=== PATIENT | male | born 1940 | race Hispanic/Latino ===

== ENCOUNTER 2018-02-04 10:15 | Day surgery (SDC) | payer MEDICARE ==
--- NOTE | 2018-02-03 12:10 | Anesthesia Consultation ---
Anesthesia Consult and Med Hx Date of service: 02/03/18 - Airway Anesthetic Teeth Evaluation: Poor ROM Head & Neck: Inadequate Mental/Hyoid Distance: Inadequate Mallampati Class: Class III Intubation Access Assessment: Possibly Difficult - Pulmonary Exam CTA: Yes - Cardiac Exam Cardiac Exam: RRR - Pre-Operative Health Status ASA Pre-Surgery Classification: ASA4 Proposed Anesthetic Plan: General (probable difficult intubation) - Pulmonary Hx Smoking: No Hx Sleep Apnea: No (FOREIGN PRE SCREEN HIGH RISK) - Cardiovascular System Hx Hypertension: No Hx Coronary Artery Disease: Yes Hx Heart Attack/AMI: Yes (X 2 ( 2003,2004) ) Hx Percutaneous Transluminal Coronary Angioplasty (PTCA): Yes (2003) Hx Pacemaker: Yes Hx Internal Defibrillator: Yes - Central Nervous System Hx Back Pain: Yes (NECK AND BACK PAIN WITH JOSEFA LEG NUMBNESS) - Endocrine Hx Renal Disease: Yes (last dialysis friday 02/02) Hx End Stage Renal Disease: Yes (SINCE 2005) - Other Systems Hx Cancer: No
[~2018-02-04 10:15] MED LIST: ANCEF/STERILE WATER 2 GM/20 ML IV NR; NACL 0.9% 1000 ML 1,000 ML IV SCH
[2018-02-04 11:39] LABS: Basophils # (Auto) 0.1 K/mm3 (0.0-0.1); Basophils % (Auto) 1.2 % (0.0-1.8); Eosinophils # (Auto) 0.4 K/mm3 (0.0-0.4); Eosinophils % (Auto) 6.6 % (0.0-4.3); Hematocrit 35.8 % (35.5-45.6); Hemoglobin 12.2 gm/dl (11.8-15.2); Lymphocytes # (Auto) 0.9 K/mm3 (1.2-5.4); Lymphocytes % (Auto) 16.9 % (13.4-35.0); Mean Corpuscular HGB Conc 34 % (32-34); Mean Corpuscular Hemoglobin 37 pg (28-32); Mean Corpuscular Volume 109 fl (84-94); Monocytes # (Auto) 0.9 K/mm3 (0.0-0.8); Monocytes % (Auto) 15.4 % (0.0-7.3); Platelet Count 116 K/mm3 (140-440); Red Blood Count 3.28 M/mm3 (3.65-5.03); Red Cell Distribution Width 15.2 % (13.2-15.2)
[2018-02-04] MEDS ORDERED: DILAUDID ONE (11:45)
[2018-02-04] MEDS ORDERED: ZEMURON IV ONE (11:46)
[2018-02-04] MEDS ORDERED: DIPRIVAN 10 MG/ML IV ONE (11:46)
[2018-02-04] MEDS ORDERED: XYLOCAINE MPF 2% ONE (11:46)
[2018-02-04 11:52] LABS: INR 1.1 (0.87-1.13)
[2018-02-04 11:53] LABS: Partial Thromboplastin Time 27.9 Sec. (24.2-36.6)
[2018-02-04 11:57] LABS: Albumin 4.3 g/dL (3.9-5)
[2018-02-04] MEDS ORDERED: MARCAINE 0.5% INFILTRATI ONE ×2 (12:12→13:46)
[2018-02-04] MEDS ORDERED: TRIPLE ANTIBIOTIC TP ONE (12:12)
[2018-02-04] MEDS ORDERED: XYLOCAINE 1%/ EPI 1:100,000 INFILTRATI ONE ×2 (12:12→13:45)
[2018-02-04] MEDS ORDERED: QUELICIN ONE (12:26)
[2018-02-04] MEDS ORDERED: BACITRACIN ONE ×2 (12:28→15:08)
[2018-02-04] MEDS ORDERED: NACL P/F VIAL (10 ML) 10 ML ONE ×2 (12:29→15:08)
[2018-02-04] MEDS ORDERED: NEO SYNEPHRINE/NS Syringe(OR USE) IV ONE (13:05)
[2018-02-04] MEDS ORDERED: NEO SYNEPHRINE ONE ×2 (13:05→15:21)
[2018-02-04] MEDS ORDERED: NACL 0.9% IR ONE ×2 (13:46)
[2018-02-04] MEDS ORDERED: BACITRACIN IR ONE ×2 (13:46)
[2018-02-04] MEDS ORDERED: SUBLIMAZE IV PRN (14:09)
--- NOTE | 2018-02-04 14:09 | Anesthesia Day of Surgery ---
Anesthesia Day of Surgery - Day of Surgery Patient Examined: Yes Patient H&P Reviewed: Yes Patient is NPO: Yes Cardiac Clearance: Yes
[2018-02-04] MEDS ORDERED: NACL 0.9% 200 ML ONE (15:20)
[2018-02-04 20:30] VITALS: BP 109/50
--- NOTE | 2018-02-07 07:36 | Fluoroscopy Report ---
FLUOROSCOPY C-ARM/FLUOROSCOPY TRACKING History: Lumbar stenosis. Findings: Fluoroscopy was provided by radiology during a spinal procedure. 12 fluoroscopic images were captured by the surgeon. The images demonstrate contrast in the thecal sac with apparent high-grade stenosis at the L4-5 level. Please correlate with the procedure report as needed. Impression: Lumbar stenosis.
== END 2018-02-04 10:16 | disposition home or self-care (01) ==
LOC: OR 10:15
PROVIDERS: ATTEND Radiology Diagnostic Radiology
DX: M48.061 Spinal stenosis, lumbar region without neurogenic claudication (principal); M51.16 Intervertebral disc disorders with radiculopathy, lumbar region; M19.012 Primary osteoarthritis, left shoulder; M51.36 Other intervertebral disc degeneration, lumbar region; I25.10 Atherosclerotic heart disease of native coronary artery without angina pectoris; N18.6 End stage renal disease; I50.9 Heart failure, unspecified; I25.2 Old myocardial infarction; I48.91 Unspecified atrial fibrillation; F32.9 Major depressive disorder, single episode, unspecified; Z79.01 Long term (current) use of anticoagulants; Z79.899 Other long term (current) drug therapy; Z88.6 Allergy status to analgesic agent; Z88.5 Allergy status to narcotic agent; Z88.8 Allergy status to other drugs, medicaments and biological substances; Z99.2 Dependence on renal dialysis; Z95.5 Presence of coronary angioplasty implant and graft; Z90.49 Acquired absence of other specified parts of digestive tract; Z95.810 Presence of automatic (implantable) cardiac defibrillator; Z98.890 Other specified postprocedural states; Z98.49 Cataract extraction status, unspecified eye
CPT/HCPCS: 36415; 63047; 72100; 80053; 85025; 85610; 85730; 86850; 86900; 86901; A4217; J0330; J0690; J1170; J2370; J2704; J7030; Q9967; A6250

== ENCOUNTER 2018-02-04 19:58 | Emergency (ER) | payer MEDICARE ==
[2018-02-04 20:11] VITALS: BP 93/42
--- NOTE | 2018-02-04 21:17 | Emergency Department Report ---
HPI - General Time Seen by Provider: 02/04/18 20:05 - HPI HPI: 77-year-old male presents to the emergency department from the parking lot after the patient was too weak postop to get into the car and go home. The patient had endoscopic decompression of lumbar stenosis done earlier today in the outpatient setting by Dr. Magallanes. The patient usually uses a accommodation of a wheelchair and a electric chair to get around but sometimes will walk a little bit using a cane. The patient felt that he was doing well postop and that the anesthesia had worn off. However when he was trying to get from the wheelchair into the car he felt like he was weak and he slowly slid down towards the ground. Family was surrounding him and was able to ease him to the ground. He did not hit his surgical site or his head. There was no loss of consciousness. Patient has a history of chronic atrial fibrillation, coronary artery disease, previous CT 2, AICD and pacemaker in place and is end- stage renal disease on hemodialysis. ED Past Medical Hx - Past Medical History Hx Hypertension: No Hx Heart Attack/AMI: Yes (X 2 ( 2003,2004) ) Hx Congestive Heart Failure: Yes Hx Renal Disease: Yes (last dialysis friday 02/02) Hx HIV: No - Surgical History Hx Coronary Stent: Yes (2003) Hx Pacemaker: Yes Hx Internal Defibrillator: Yes Hx Cholecystectomy: Yes - Social History Smoking Status: Never Smoker - Medications Home Medications: Home Medications Medication Instructions Recorded Confirmed Last Taken Type Cinacalcet [Sensipar] 30 mg PO DAILY 01/31/18 01/31/18 02/03/18 History Ferric Citrate (Nf) [Auryxia (Nf)] 210 mg PO TID 01/31/18 01/31/18 02/03/18 History Gabapentin [Neurontin] 400 mg PO BID 01/31/18 02/04/18 02/04/18 09:00 History Midodrine HCl 20 mg PO DAILY 01/31/18 02/04/18 01/14/18 07:05 History Oxycodone HCl/Acetaminophen 1 each PO Q6HR PRN 01/31/18 02/04/18 02/04/18 10:00 History [Percocet 10/325 mg] Polyethylene Glycol 3350 [Miralax 17 gm PO QDAY 01/31/18 01/31/18 02/03/18 History 3350] Warfarin [Coumadin] 7.5 mg PO QDAY 01/31/18 02/04/18 01/29/18 History Cetirizine HCl [ZyrTEC] 10 mg PO DAILY 02/04/18 02/04/18 02/04/18 09:00 History ED Review of Systems ROS: Stated complaint: FALL Other details as noted in HPI Comment: All other systems reviewed and negative Constitutional: weakness. denies: fever Eyes: denies: eye pain, eye discharge, vision change ENT: denies: ear pain, throat pain Respiratory: denies: cough, shortness of breath, wheezing Cardiovascular: denies: chest pain, palpitations Gastrointestinal: denies: abdominal pain, nausea, diarrhea Genitourinary: denies: urgency, dysuria Musculoskeletal: denies: joint swelling, arthralgia Skin: denies: rash, lesions Neurological: denies: headache, confusion Physical Exam - Physical Exam Vital Signs: Vital Signs 02/04/18 20:02 Temperature 97.7 F Pulse Rate 70 Respiratory 16 Rate Blood Pressure 93/42 [Left] O2 Sat by Pulse 95 Oximetry Physical Exam: GENERAL: The patient is well-developed well-nourished. HENT: Normocephalic. Atraumatic. Patient has moist mucous membranes. EYES: Extraocular motions are intact. Pupils are equal. NECK: Supple. Trachea is midline. CHEST/LUNGS: Clear to auscultation. There is no respiratory distress noted. HEART/CARDIOVASCULAR: Regular. There is no tachycardia. There is no murmur. ABDOMEN: Abdomen is soft, nontender. Patient has normal bowel sounds. There is no abdominal distention. SKIN: Skin is warm and dry. NEURO: The patient is awake, alert, and oriented. The patient is cooperative. The patient has no focal neurologic deficits. The patient has normal speech. Cranial nerves II through XII grossly intact. No facial symmetry. MUSCULOSKELETAL: There is no tenderness or deformity. Patient has decreased left foot dorsi and plantar flexion as he has a chronic left foot drop. Patent right upper extremity dialysis fistula. ED Course Vital Signs 02/04/18 20:02 Temperature 97.7 F Pulse Rate 70 Respiratory 16 Rate Blood Pressure 93/42 [Left] O2 Sat by Pulse 95 Oximetry ED Medical Decision Making - EKG Data -: EKG Interpreted by Me - EKG Data When compared to previous EKG there are: previous EKG unavailable Interpretation: other (A. fib/flutter with ventricular paced complexes. Rate of [address] elevation CT) - Medical Decision Making The patient had labs done preop before his endoscopic lower back procedure and there was no signs of any hyperkalemia, leukocytosis or any significant electrolyte abnormalities. There was some renal insufficiency but the patient is chronic kidney disease on hemodialysis. An Accu-Chek was done and the patient had about 150 for a blood sugar level. On examination in the emergency department, the patient is awake, alert, oriented. Cranial nerves II through XII grossly intact. The patient has some decreased range of motion of the left foot but has a chronic left foot drop. He denies any numbness. The patient had some generalized weakness after the surgery and had trouble getting into the car and thus the reason why he came to the emergency department. The patient was evaluated over a few hours and we attempted to get the patient up with assistance, with a nurse on each side of him, to show that he could take a few steps and essentially get in and out of the car, into his home, and to his wheelchair and/or a power chair. However the patient appears to have difficulty getting up out of the bed, bearing weight, and ambulating. It was my recommendation to the patient and his family that he remain in the hospital as an admission to work on his general strength, PT/OT, possible evaluation by his surgeon and to have further evaluation. However the patient says that he believes that his strength will come back and that all he needs is to eat some dinner and rest. He says that there is family and/or friends that can help him get from the car into his home. I insisted that the patient remain in the hospital and let him know that her risk of leaving could include a fall, hitting his head, causing a brain bleed, fractures or dislocations of the extremities, increased back pain or causing damage to his recently repaired spine, disability or even . The patient is awake, oriented and has the mental capacity to make medical decisions for himself and despite knowing these risks the patient still has chosen to leave. They were instructed that if he changes his mind, or if there is any concerns or distress, they will be welcome back to the emergency department for further evaluation. The patient then left AGAINST MEDICAL ADVICE. Critical Care Time: No Critical care attestation.: If time is entered above; I have spent that time in minutes in the direct care of this critically ill patient, excluding procedure time. ED Disposition Clinical Impression: Generalized weakness, Gait difficulty Disposition: DC-07 LEFT AGAINST MED ADVICE Is pt being admited?: No Condition: Fair Additional Instructions: Return to the emergency department immediately if you change your mind about further evaluation, admission, physical therapy. If not, please make sure to follow up with your primary care physician and your surgeon. Referrals: DANIAL FELIX MD [Primary Care Provider] - [facility] Forms: AMA Form Time of Disposition: 22:54
== END 2018-02-04 20:35 | disposition left against medical advice (07) ==
LOC: ED 19:58
DX: R53.1 Weakness (principal); R26.9 Unspecified abnormalities of gait and mobility; I13.2 Hypertensive heart and chronic kidney disease with heart failure and with stage 5 chronic kidney disease, or end stage renal disease; N18.6 End stage renal disease; I50.9 Heart failure, unspecified; Z99.2 Dependence on renal dialysis; I25.2 Old myocardial infarction; Z90.49 Acquired absence of other specified parts of digestive tract; Z95.1 Presence of aortocoronary bypass graft
CPT/HCPCS: 82962; 93005; 93010; 99282